=== PATIENT | female | born 1950 | race Hispanic/Latino ===

== ENCOUNTER 2018-03-08 00:56 | Emergency (ER) | payer OTHER ==
[~2018-03-08 00:56] MED LIST: ASPI-891 PO; IBUP-2077 PO; LISI-617 PO; NITR0.4T SL; RANI150T7 PO; ROSU20TA PO; SOTA80TA PO; TIZA2CAP9 PO
[2018-03-08] MEDS ORDERED: ONDANSETRON HCL MDV 20ML 2 MG/ML VIAL ONE (03:17)
[2018-03-08] MEDS ORDERED: SODIUM CHLORIDE 0.9% 1000ML 1,000 ML IV ONE (03:18)
[2018-03-08] MEDS ORDERED: MORPHINE SULFATE 8 MG/ML VIAL ONE (03:21)
[2018-03-08 03:34] LABS: BILIRUBIN,URINE Negative (NEGATIVE); COLOR,URINE Yellow (YELLOW); GLUCOSE, URINE (UA) Negative (NEGATIVE); KETONES,URINE Negative (NEGATIVE); LEUKOCYTE ESTERASE ,URINE Negative (NEGATIVE); NITRATE,URINE Negative (NEGATIVE); OCCULT BLOOD,URINE Moderate (NEGATIVE); PROTEIN,URINE Negative (NEGATIVE); UROBILINOGEN,URINE 0.2 mg/dL (0.2-1.0)
[2018-03-08 03:44] LABS: BASOPHILS % (AUTO) 0.4 % (0.0-5.0); EOSINOPHILS % (AUTO) 2.7 % (0.0-8.0); HEMATOCRIT 38.3 % (36-48); LYMPHOCYTES % (AUTO) 5.3 % (21.0-51.0); MEAN CORPUSCULAR HEMOGLOBIN 28.6 pg (27.0-33.0); MEAN CORPUSCULAR HGB CONC 33.9 g/dL (32.0-36.0); MEAN CORPUSCULAR VOLUME 84.6 fL (79-99); MONOCYTES % (AUTO) 5.6 % (3.0-13.0); PLATELET COUNT (AUTO) 253 K/uL (130-400); RED BLOOD CELL COUNT(AUTO) 4.53 MIL/uL (4.00-5.50); RED CELL DISTRIBUTION WIDTH 13.2 % (11.0-15.5); WHITE BLOOD COUNT (AUTO) 12.2 K/uL (4.8-10.8)
[2018-03-08 03:57] LABS: CREATININE 0.7 mg/dL (0.5-1.5); POTASSIUM 3.9 mmol/L (3.5-5.1)
[2018-03-08 04:02] LABS: ALBUMIN 3.6 g/dL (3.5-5.0); BILIRUBIN,TOTAL 0.5 mg/dL (0.2-1.0); TOTAL PROTEIN, SERUM 7.8 g/dL (6.0-8.3)
[2018-03-08 04:02] LABS: APPEARANCE,URINE CLEAR (CLEAR); BACTERIA,URINE Few /HPF (None Seen); MUCUS,URINE Few LPF (None Seen); RBC,URINE None Seen /HPF (0-1); WBC,URINE 0-1 /HPF (0-1)
[2018-03-08] MEDS ORDERED: IOPAMIDOL-370 75 ML VIAL IV ONE (04:30)
== END 2018-03-08 06:51 | disposition home or self-care (01) ==
LOC: EDH 00:56
DX: K80.80 Other cholelithiasis without obstruction (principal); E78.5 Hyperlipidemia, unspecified; I10 Essential (primary) hypertension; Z88.0 Allergy status to penicillin
CPT/HCPCS: 36415; 74177; 76705; 80053; 81001; 82150; 83690; 85025; 93005; 96374; 96375; 99285; J2270; J7030; Q9967

== ENCOUNTER 2020-10-18 12:50 | Inpatient (IN) | payer OTHER ==
[~2020-10-18] VITALS: Ht 170.2 cm; Wt 87.2 kg
[~2020-10-18 12:50] MED LIST changes: -ROSU20TA PO; +ROSU20TA23 PO
[2020-10-18 13:20] LABS: APPEARANCE,URINE Clear (CLEAR); BILIRUBIN,URINE Negative (NEGATIVE); COLOR,URINE Yellow (YELLOW); GLUCOSE, URINE (UA) Negative (NEGATIVE); KETONES,URINE Negative (NEGATIVE); LEUKOCYTE ESTERASE ,URINE Trace (NEGATIVE); NITRATE,URINE Negative (NEGATIVE); OCCULT BLOOD,URINE Moderate (NEGATIVE); PH,URINE 5.5 (5.0-8.0); PROTEIN,URINE Negative (NEGATIVE); UROBILINOGEN,URINE 0.2 mg/dL (0.2-1.0)
[2020-10-18 13:21] LABS: BASOPHILS % (AUTO) 1.5 % (0.0-5.0); HEMATOCRIT 44.4 % (36-48); LYMPHOCYTES % (AUTO) 27.8 % (21.0-51.0); MEAN CORPUSCULAR HEMOGLOBIN 28.3 pg (27.0-33.0); MEAN CORPUSCULAR HGB CONC 32.2 g/dL (32.0-36.0); MEAN CORPUSCULAR VOLUME 87.9 fL (79-99); MONOCYTES % (AUTO) 8.7 % (3.0-13.0); NEUTROPHILS % (AUTO) 53.8 % (40.0-77.0); PLATELET COUNT (AUTO) 265 K/uL (130-400); RED BLOOD CELL COUNT(AUTO) 5.05 MIL/uL (4.00-5.50); RED CELL DISTRIBUTION WIDTH 12.9 % (11.0-15.5)
[2020-10-18 13:23] LABS: BACTERIA,URINE Rare /HPF (None Seen); RBC,URINE 0-1 /HPF (0-1); SQUAMOUS EPITHELIAL CELL,UR Few /HPF (0-2); WBC,URINE 0-1 /HPF (0-1)
[2020-10-18] MEDS ORDERED: ONDANSETRON HCL 4 MG/2 ML VIAL ONE (13:23)
[2020-10-18] MEDS ORDERED: SODIUM CHLORIDE 0.9% 100 ML IV ONE (13:24)
[2020-10-18] MEDS ORDERED: ACETAMINOPHEN 325 MG TAB ONE (13:28)
[2020-10-18] MEDS ORDERED: MORPHINE SULFATE 4 MG/1ML SYG ONE (13:29)
[2020-10-18] MEDS ORDERED: SODIUM CHLORIDE 0.9% 1000ML 1,000 ML IV ONE (13:29)
[2020-10-18 13:37] LABS: ALBUMIN 3.9 g/dL (3.5-5.0); BILIRUBIN,TOTAL 0.6 mg/dL (0.2-1.0); CREATININE 0.7 mg/dL (0.5-1.5); POTASSIUM 3.5 mmol/L (3.5-5.1)
[2020-10-18] MEDS ORDERED: KETOROLAC TROMETHAMINE 30MG/ML ONE (14:30)
[2020-10-18] MEDS ORDERED: TAMSULOSIN HCL 0.4 MG CAP.ER.24H ONE (15:57)
[2020-10-18] MEDS ORDERED: LEVOFLOXACIN 500 MG TABLET ONE (16:09)
[2020-10-18] MEDS: SODIUM CHLORIDE 0.9% 1000ML 1,000 ML IV SCH (18:15)
[2020-10-18] MEDS ORDERED: ONDANSETRON HCL 4 MG/2 ML VIAL IVP PRN (18:15)
[2020-10-18] MEDS: CEFTRIAXONE SODIUM 1 GM IVP SCH (18:15)
[2020-10-18] MEDS ORDERED: CEFTRIAXONE SODIUM 1 GM ONE (20:15)
[2020-10-18] MEDS ORDERED: FAMOTIDINE 20MG TAB 20 MG TAB ONE (20:15)
[2020-10-18] MEDS ORDERED: METOPROLOL TARTRATE 25 MG TAB ONE (20:16)
[2020-10-18] MEDS: METOPROLOL TARTRATE 25 MG TAB PO SCH (21:00)
[2020-10-18] MEDS: FAMOTIDINE/PF 20 MG/2 ML VIAL IV SCH (21:00)
[2020-10-19] MEDS: SODIUM CHLORIDE 0.9% 1000ML 1,000 ML IV SCH ×3 (04:15→19:49)
[2020-10-19 06:33] LABS: BASOPHILS % (AUTO) 0.8 % (0.0-5.0); EOSINOPHILS % (AUTO) 1.7 % (0.0-8.0); HEMATOCRIT 35.8 % (36-48); LYMPHOCYTES % (AUTO) 17.8 % (21.0-51.0); MEAN CORPUSCULAR HEMOGLOBIN 28.4 pg (27.0-33.0); MEAN CORPUSCULAR HGB CONC 32.4 g/dL (32.0-36.0); MEAN CORPUSCULAR VOLUME 87.7 fL (79-99); MONOCYTES % (AUTO) 8.2 % (3.0-13.0); NEUTROPHILS % (AUTO) 71.2 % (40.0-77.0); PLATELET COUNT (AUTO) 214 K/uL (130-400); RED BLOOD CELL COUNT(AUTO) 4.08 MIL/uL (4.00-5.50); RED CELL DISTRIBUTION WIDTH 12.8 % (11.0-15.5); WHITE BLOOD COUNT (AUTO) 6.6 K/uL (4.8-10.8)
[2020-10-19 06:45] LABS: CREATININE 0.6 mg/dL (0.5-1.5); POTASSIUM 3.8 mmol/L (3.5-5.1)
[2020-10-19 06:55] LABS: ALBUMIN 3.1 g/dL (3.5-5.0); BILIRUBIN,TOTAL 0.5 mg/dL (0.2-1.0); TOTAL PROTEIN, SERUM 6.4 g/dL (6.0-8.3)
[2020-10-19] MEDS: METOPROLOL TARTRATE 25 MG TAB PO SCH ×2 (09:00→19:49)
[2020-10-19] MEDS: FAMOTIDINE/PF 20 MG/2 ML VIAL IV SCH ×2 (09:00→19:49)
[2020-10-19] MEDS: ASPIRIN 81MG TAB.CHEW PO SCH (09:00)
[2020-10-19 10:21] VITALS: BP 148/71
[2020-10-19] MEDS ORDERED: ONDANSETRON HCL 4 MG/2 ML VIAL IVP PRN (13:30)
[2020-10-19] MEDS ORDERED: ACETAMINOPHEN 325 MG TAB PO PRN (13:30)
[2020-10-19] MEDS ORDERED: SODIUM CHLORIDE 0.9% 1000ML 1,000 ML IV SCH (13:30)
[2020-10-19] MEDS: CEFTRIAXONE SODIUM 1 GM IVP SCH (18:19)
[2020-10-19 18:34] VITALS: BP 140/89
[2020-10-19] MEDS ORDERED: ERGO50CA PO (18:46)
[2020-10-19] MEDS ORDERED: BACL5TAB PO (18:47)
[2020-10-19] MEDS ORDERED: SOTA80TA PO (18:47)
[2020-10-19 19:47] VITALS: BP 134/69
[2020-10-19] MEDS ORDERED: FAMOTIDINE 20MG TAB 20 MG TAB PO SCH (21:00)
[2020-10-19] MEDS ORDERED: METOPROLOL TARTRATE 25 MG TAB PO SCH (21:00)
[2020-10-20] VITALS (7 sets, daily range): BP systolic 128–153; BP diastolic 70–88
[2020-10-20 05:47] LABS: HEMATOCRIT 38.3 % (36-48); MEAN CORPUSCULAR HEMOGLOBIN 28.2 pg (27.0-33.0); MEAN CORPUSCULAR HGB CONC 31.6 g/dL (32.0-36.0); MEAN CORPUSCULAR VOLUME 89.3 fL (79-99); RED BLOOD CELL COUNT(AUTO) 4.29 MIL/uL (4.00-5.50); RED CELL DISTRIBUTION WIDTH 13.2 % (11.0-15.5); WHITE BLOOD COUNT (AUTO) 5.7 K/uL (4.8-10.8)
[2020-10-20 06:34] LABS: ALBUMIN 3.2 g/dL (3.5-5.0); BILIRUBIN,TOTAL 0.4 mg/dL (0.2-1.0); CREATININE 0.7 mg/dL (0.5-1.5); POTASSIUM 3.6 mmol/L (3.5-5.1); TOTAL PROTEIN, SERUM 6.7 g/dL (6.0-8.3)
[2020-10-20] MEDS: METOPROLOL TARTRATE 25 MG TAB PO SCH (08:55)
[2020-10-20] MEDS: FAMOTIDINE/PF 20 MG/2 ML VIAL IV SCH ×2 (08:55→22:55)
[2020-10-20] MEDS: ASPIRIN 81MG TAB.CHEW PO SCH (08:56)
[2020-10-20] MEDS ORDERED: CEFTRIAXONE SODIUM 1 GM IVP SCH (09:00)
[2020-10-20] MEDS ORDERED: ASPIRIN 81 MG EC TAB PO SCH (09:00)
[2020-10-20] MEDS: ACETAMINOPHEN 325 MG TAB PO PRN ×2 (09:01→22:59)
[2020-10-20] MEDS: SODIUM CHLORIDE 0.9% 1000ML 1,000 ML IV SCH ×2 (10:15→20:15)
[2020-10-20] MEDS ORDERED: MAGNESIUM CITRATE 296 ML SOLUTION PO PRN (15:15)
[2020-10-20] MEDS: ZOSYN 3.375GM+NS 50ML 50 ML IV SCH ×2 (16:27→22:55)
[2020-10-20] MEDS ORDERED: NON-FORMULARY MEDICATION 1 EACH (Baclofen 5 MG) PO PRN (16:45)
[2020-10-20] MEDS ORDERED: ERGOCALCIFEROL PO SCH (16:45)
[2020-10-20] MEDS ORDERED: BACLOFEN 10 MG TABLET PO PRN (18:00)
[2020-10-20] MEDS ORDERED: MAGNESIUM CITRATE 296 ML SOLUTION PO SCH (18:50)
[2020-10-20] MEDS: ATORVASTATIN CALCIUM 40 MG TABLET PO SCH (22:56)
[2020-10-20] MEDS: SOTALOL HCL 80 MG TABLET PO SCH (22:56)
[2020-10-21 04:02] VITALS: BP 129/76
[2020-10-21] MEDS: SODIUM CHLORIDE 0.9% 1000ML 1,000 ML IV SCH ×3 (06:15→21:41)
[2020-10-21 06:30] LABS: HEMATOCRIT 36.9 % (36-48); MEAN CORPUSCULAR HEMOGLOBIN 27.8 pg (27.0-33.0); MEAN CORPUSCULAR HGB CONC 31.4 g/dL (32.0-36.0); MEAN CORPUSCULAR VOLUME 88.5 fL (79-99); RED BLOOD CELL COUNT(AUTO) 4.17 MIL/uL (4.00-5.50); RED CELL DISTRIBUTION WIDTH 13.2 % (11.0-15.5); WHITE BLOOD COUNT (AUTO) 5.9 K/uL (4.8-10.8)
[2020-10-21] MEDS: ZOSYN 3.375GM+NS 50ML 50 ML IV SCH ×3 (06:46→21:41)
[2020-10-21 06:48] LABS: CREATININE 0.6 mg/dL (0.5-1.5); POTASSIUM 3.5 mmol/L (3.5-5.1)
[2020-10-21 08:19] VITALS: BP 139/74
[2020-10-21] MEDS ORDERED: NON-FORMULARY MEDICATION 1 EACH (Rosuvastatin Calcium (Crestor) 20 MG) PO SCH (09:00)
[2020-10-21] MEDS: ASPIRIN 325MG EC TAB 325 MG TABLET.DR PO SCH (09:29)
[2020-10-21] MEDS: FAMOTIDINE/PF 20 MG/2 ML VIAL IV SCH ×2 (09:29→21:41)
[2020-10-21] MEDS: LISINOPRIL 5 MG TABLET PO SCH (09:29)
[2020-10-21] MEDS: SOTALOL HCL 80 MG TABLET PO SCH ×2 (09:29→21:41)
[2020-10-21 12:51] VITALS: BP 129/64
[2020-10-21 16:46] VITALS: BP 124/68
[2020-10-21 20:40] VITALS: BP 141/58
[2020-10-21] MEDS: ATORVASTATIN CALCIUM 40 MG TABLET PO SCH (21:41)
[2020-10-21 23:25] VITALS: BP 122/63
[2020-10-22 03:50] VITALS: BP 136/67
[2020-10-22] MEDS: ZOSYN 3.375GM+NS 50ML 50 ML IV SCH ×2 (06:15→15:12)
[2020-10-22] MEDS: SODIUM CHLORIDE 0.9% 1000ML 1,000 ML IV SCH (06:17)
[2020-10-22 06:36] LABS: HEMATOCRIT 36.1 % (36-48); MEAN CORPUSCULAR HEMOGLOBIN 28.1 pg (27.0-33.0); MEAN CORPUSCULAR HGB CONC 31.3 g/dL (32.0-36.0); MEAN CORPUSCULAR VOLUME 89.8 fL (79-99); RED BLOOD CELL COUNT(AUTO) 4.02 MIL/uL (4.00-5.50); WHITE BLOOD COUNT (AUTO) 6.4 K/uL (4.8-10.8)
[2020-10-22 07:14] LABS: CREATININE 0.8 mg/dL (0.5-1.5); POTASSIUM 3.5 mmol/L (3.5-5.1)
[2020-10-22 08:06] VITALS: BP 143/82
[2020-10-22] MEDS: FAMOTIDINE/PF 20 MG/2 ML VIAL IV SCH (10:15)
[2020-10-22] MEDS: SOTALOL HCL 80 MG TABLET PO SCH (10:15)
[2020-10-22] MEDS: LISINOPRIL 5 MG TABLET PO SCH (10:15)
[2020-10-22] MEDS: ASPIRIN 325MG EC TAB 325 MG TABLET.DR PO SCH (10:16)
[2020-10-22 11:35] VITALS: BP 140/63
[2020-10-22 16:07] VITALS: BP 102/60
[2020-10-22] MEDS ORDERED: AMOX-429 PO (18:05)
[2020-10-27] MEDS ORDERED: ERGOCALCIFEROL (VITAMIN D2) 50,000 UNIT CAPSULE PO SCH (09:00)
== END 2020-10-22 19:21 | disposition home or self-care (01) | DRG 690 ==
LOC: EDH 12:50 → EDHIP 17:49 → OBSVTOIN 17:49 → 3AH 10-19 09:47
PROVIDERS: ADMIT Internal Medicine; ATTEND Internal Medicine
DX: N39.0 Urinary tract infection, site not specified (principal); I48.19 Other persistent atrial fibrillation; K59.09 Other constipation; E78.5 Hyperlipidemia, unspecified; E66.9 Obesity, unspecified; I10 Essential (primary) hypertension; K57.30 Diverticulosis of large intestine without perforation or abscess without bleeding; R31.9 Hematuria, unspecified; M62.838 Other muscle spasm; K57.90 Diverticulosis of intestine, part unspecified, without perforation or abscess without bleeding; Z68.30 Body mass index [BMI] 30.0-30.9, adult; Z79.899 Other long term (current) drug therapy; Z87.442 Personal history of urinary calculi
CPT/HCPCS: 36415; 74176; 76856; 80048; 80053; 81001; 83605; 84484; 85025; 85027; 87040; 87088; 93005; G0378; J0696; J1885; J2270; J2405; J2543; J3490; J7030

== ENCOUNTER → 2020-12-14 | Outpatient (CLI) | payer OTHER ==
[~2020-12-14] VITALS: Ht 167.6 cm; Wt 84.8 kg
[~2020-12-14] MED LIST changes: +AMOX-429 PO; +BACL5TAB PO; +ERGO50CA PO; -IBUP-2077 PO; -LISI-617 PO; +LISI-809 PO; -RANI150T7 PO; +REGADENOSON 0.4 MG/5 ML PF SYG IVP SCH; -TIZA2CAP9 PO
== END | disposition home or self-care (01) ==
LOC: SHCH 08:01
PROVIDERS: ATTEND Internal Medicine Cardiovascular Disease
DX: R07.9 Chest pain, unspecified (principal); I48.19 Other persistent atrial fibrillation; R06.00 Dyspnea, unspecified
CPT/HCPCS: 78452; 93017; 96374; A9500 ×2; J2785

== ENCOUNTER → 2021-01-18 | Outpatient (CLI) | payer OTHER ==
[~2021-01-18] MED LIST changes: -REGADENOSON 0.4 MG/5 ML PF SYG IVP SCH
== END | disposition home or self-care (01) ==
LOC: SHCH 15:31
PROVIDERS: ATTEND Internal Medicine Cardiovascular Disease
DX: I10 Essential (primary) hypertension (principal); R07.9 Chest pain, unspecified; I48.11 Longstanding persistent atrial fibrillation
CPT/HCPCS: 93306; 93356

== ENCOUNTER 2021-02-28 15:34 | Observation (INO) | payer OTHER ==
[~2021-02-28] VITALS: Ht 167.6 cm; Wt 86.3 kg
[2021-02-28 16:04] LABS: BASOPHILS % (AUTO) 0.9 % (0.0-5.0); EOSINOPHILS % (AUTO) 6.6 % (0.0-8.0); HEMATOCRIT 38.3 % (36-48); LYMPHOCYTES % (AUTO) 26.5 % (21.0-51.0); MEAN CORPUSCULAR HEMOGLOBIN 28.6 pg (27.0-33.0); MEAN CORPUSCULAR HGB CONC 32.1 g/dL (32.0-36.0); MEAN CORPUSCULAR VOLUME 89.1 fL (79-99); MONOCYTES % (AUTO) 8.3 % (3.0-13.0); NEUTROPHILS % (AUTO) 57.5 % (40.0-77.0); PLATELET COUNT (AUTO) 210 K/uL (130-400); RED CELL DISTRIBUTION WIDTH 13.4 % (11.0-15.5); WHITE BLOOD COUNT (AUTO) 6.5 K/uL (4.8-10.8)
[2021-02-28 16:16] LABS: CREATININE 0.7 mg/dL (0.5-1.5); INR 1.03 (0.85-1.15); POTASSIUM 3.4 mmol/L (3.5-5.1); PROTHROMBIN TIME 11.2 SEC (9.6-11.6)
[2021-02-28 16:17] LABS: PARTIAL THROMBOPLASTIN TIME 23.7 SEC (26.3-35.5)
[2021-02-28 16:25] LABS: ALBUMIN 3.5 g/dL (3.5-5.0); BILIRUBIN,TOTAL 0.8 mg/dL (0.2-1.0); TOTAL PROTEIN, SERUM 7.3 g/dL (6.0-8.3)
[2021-02-28 16:46] LABS: B-TYPE NATRIURETIC PEPTIDE 494 pg/mL (0-100)
[2021-02-28 17:06] LABS: APPEARANCE,URINE Clear (CLEAR); BILIRUBIN,URINE Negative (NEGATIVE); COLOR,URINE Yellow (YELLOW); GLUCOSE, URINE (UA) Negative (NEGATIVE); KETONES,URINE Negative (NEGATIVE); LEUKOCYTE ESTERASE ,URINE Trace (NEGATIVE); NITRATE,URINE Negative (NEGATIVE); OCCULT BLOOD,URINE Trace (NEGATIVE); PH,URINE 6.5 (5.0-8.0); PROTEIN,URINE Negative (NEGATIVE)
[2021-02-28 17:28] LABS: BACTERIA,URINE Few /HPF (None Seen); MUCUS,URINE Few LPF (None Seen); SQUAMOUS EPITHELIAL CELL,UR Moderate /HPF (0-2)
[2021-02-28] MEDS ORDERED: SODIUM CHLORIDE 0.9% 1000ML 1,000 ML IV SCH (23:00)
[2021-02-28] MEDS ORDERED: HYDRALAZINE HCL 20 MG/ML VIAL IV PRN (23:00)
[2021-02-28] MEDS ORDERED: ACETAMINOPHEN 325 MG TAB PO PRN (23:00)
[2021-02-28] MEDS ORDERED: NITROGLYCERIN 1GM/1 INCH PACKET TD SCH (23:00)
[2021-02-28] MEDS ORDERED: ONDANSETRON HCL 4 MG/2 ML VIAL IV PRN (23:00)
[2021-02-28 23:57] LABS: CREATINE KINASE, TOTAL 84 U/L (21-232); MYOGLOBIN 39 ng/mL (10-92); TROPONIN I < 0.04 ng/mL (0.00-0.06)
[2021-03-01] VITALS (7 sets, daily range): BP systolic 129–168; BP diastolic 64–87
[2021-03-01] MEDS ORDERED: ATORVASTATIN CALCIUM 40 MG TABLET ONE (00:04)
[2021-03-01] MEDS ORDERED: NITROGLYCERIN 1GM/1 INCH PACKET TD ONE (00:05)
[2021-03-01] MEDS ORDERED: SODIUM CHLORIDE 0.9% 500ML 500 ML IV ONE (00:07)
[2021-03-01] MEDS ORDERED: ADV250 IH (02:22)
[2021-03-01] MEDS ORDERED: APIX5TAB PO (02:22)
[2021-03-01] MEDS ORDERED: METO-409 PO (02:22)
[2021-03-01] MEDS ORDERED: FAMO40TA7 PO (02:22)
[2021-03-01 05:04] LABS: BASOPHILS % (AUTO) 1.1 % (0.0-5.0); HEMATOCRIT 35.9 % (36-48); LYMPHOCYTES % (AUTO) 26.4 % (21.0-51.0); MEAN CORPUSCULAR HEMOGLOBIN 28.4 pg (27.0-33.0); MEAN CORPUSCULAR HGB CONC 31.5 g/dL (32.0-36.0); MEAN CORPUSCULAR VOLUME 90.2 fL (79-99); MONOCYTES % (AUTO) 8.8 % (3.0-13.0); NEUTROPHILS % (AUTO) 56.4 % (40.0-77.0); PLATELET COUNT (AUTO) 191 K/uL (130-400); RED BLOOD CELL COUNT(AUTO) 3.98 MIL/uL (4.00-5.50); RED CELL DISTRIBUTION WIDTH 13.2 % (11.0-15.5)
[2021-03-01 05:28] LABS: ALBUMIN 3.1 g/dL (3.5-5.0); CREATININE 0.6 mg/dL (0.5-1.5); MAGNESIUM 1.9 mg/dL (1.80-2.40); PHOSPHORUS 3.9 mg/dL (2.5-4.9); POTASSIUM 3.3 mmol/L (3.5-5.1); THYROID STIMULATING HORMONE 1.3 uIU/mL (0.36-3.74); TOTAL PROTEIN, SERUM 6.7 g/dL (6.0-8.3)
[2021-03-01 07:21] LABS: CREATINE KINASE, TOTAL 54 U/L (21-232); MYOGLOBIN 44 ng/mL (10-92); TROPONIN I < 0.04 ng/mL (0.00-0.06)
[2021-03-01] MEDS ORDERED: ASPIRIN 325 MG TABLET PO SCH (09:00)
[2021-03-01] MEDS ORDERED: SOTALOL HCL 80 MG TABLET PO SCH (09:00)
[2021-03-01] MEDS ORDERED: ENOXAPARIN SODIUM 40 MG/0.4 ML SYRINGE SQ SCH (09:00)
[2021-03-01] MEDS: NITROGLYCERIN 1GM/1 INCH PACKET TD SCH ×3 (09:44→19:42)
[2021-03-01] MEDS: FAMOTIDINE 20MG TAB 20 MG TAB PO SCH ×2 (09:44→20:50)
[2021-03-01] MEDS: SULFAMETHOX-TMP DS 800/160 TAB PO SCH ×2 (09:44→20:50)
[2021-03-01] MEDS: METOPROLOL SUCCINATE 50 MG TAB.SR.24H PO SCH (09:45)
[2021-03-01] MEDS: APIXABAN 5 MG TABLET PO SCH ×2 (09:45→20:50)
[2021-03-01 14:08] LABS: CREATINE KINASE, TOTAL 63 U/L (21-232); MYOGLOBIN 46 ng/mL (10-92); TROPONIN I < 0.04 ng/mL (0.00-0.06)
[2021-03-01] MEDS ORDERED: ATORVASTATIN CALCIUM 40 MG TABLET PO SCH (21:00)
[2021-03-02] MEDS: NITROGLYCERIN 1GM/1 INCH PACKET TD SCH ×3 (01:25→14:20)
[2021-03-02 03:00] VITALS: BP 159/69
[2021-03-02 03:59] LABS: ALBUMIN 3.1 g/dL (3.5-5.0); BILIRUBIN,TOTAL 0.8 mg/dL (0.2-1.0); CREATININE 0.8 mg/dL (0.5-1.5); MAGNESIUM 1.9 mg/dL (1.80-2.40); POTASSIUM 3.6 mmol/L (3.5-5.1); TOTAL PROTEIN, SERUM 6.6 g/dL (6.0-8.3)
[2021-03-02 08:00] VITALS: BP 150/96
[2021-03-02] MEDS: FAMOTIDINE 20MG TAB 20 MG TAB PO SCH (08:05)
[2021-03-02] MEDS: APIXABAN 5 MG TABLET PO SCH (08:05)
[2021-03-02] MEDS: SULFAMETHOX-TMP DS 800/160 TAB PO SCH (08:05)
[2021-03-02] MEDS: METOPROLOL SUCCINATE 50 MG TAB.SR.24H PO SCH (08:05)
[2021-03-02 11:49] VITALS: BP 149/88
[2021-03-02] MEDS ORDERED: SULF1TAB42 PO (13:49)
== END 2021-03-02 15:00 | disposition home or self-care (01) ==
LOC: EDH 15:34 → EDHIP 22:46 → 4DH 03-01 00:56
PROVIDERS: ADMIT Internal Medicine Critical Care Medicine; ATTEND Internal Medicine Critical Care Medicine
DX: R07.89 Other chest pain (principal); I48.20 Chronic atrial fibrillation, unspecified; I10 Essential (primary) hypertension; K59.09 Other constipation; E66.9 Obesity, unspecified; E78.5 Hyperlipidemia, unspecified; M62.838 Other muscle spasm; R55 Syncope and collapse; N39.0 Urinary tract infection, site not specified; Z90.49 Acquired absence of other specified parts of digestive tract; Z79.01 Long term (current) use of anticoagulants; Z79.82 Long term (current) use of aspirin; Z79.899 Other long term (current) drug therapy; Z88.0 Allergy status to penicillin; Z68.30 Body mass index [BMI] 30.0-30.9, adult
CPT/HCPCS: 36415 ×3; 71045; 80053 ×3; 80061; 81001; 82550 ×4; 82948 ×3; 83735 ×2; 83874 ×3; 83880; 84100; 84443; 84484 ×4; 85025 ×2; 85610; 85730; 93005 ×5; 93306; 93880; 99285; G0378 ×39; J7040

== ENCOUNTER → 2023-02-06 | Outpatient (CLI) | payer OTHER ==
[~2023-02-06] MED LIST changes: +ADV250 IH; -AMOX-429 PO; +APIX5TAB PO; -ASPI-891 PO; +FAMO40TA7 PO; -LISI-809 PO; +LISI5TAB21 PO; +METO-409 PO; -SOTA80TA PO; +SULF1TAB42 PO
[2023-02-06 12:13] LABS: BASOPHILS % (AUTO) 1.5 % (0.0-5.0); EOSINOPHILS % (AUTO) 5.4 % (0.0-8.0); HEMATOCRIT 43.1 % (36-48); LYMPHOCYTES % (AUTO) 26.5 % (21.0-51.0); MEAN CORPUSCULAR HEMOGLOBIN 28.4 pg (27.0-33.0); MEAN CORPUSCULAR HGB CONC 31.3 g/dL (32.0-36.0); MEAN CORPUSCULAR VOLUME 90.5 fL (79-99); MONOCYTES % (AUTO) 9.5 % (3.0-13.0); NEUTROPHILS % (AUTO) 56.6 % (40.0-77.0); PLATELET COUNT (AUTO) 244 K/uL (130-400); RED BLOOD CELL COUNT(AUTO) 4.76 MIL/uL (4.00-5.50); RED CELL DISTRIBUTION WIDTH 13.1 % (11.0-15.5); WHITE BLOOD COUNT (AUTO) 6.6 K/uL (4.8-10.8)
[2023-02-06 12:37] LABS: ALBUMIN 3.7 g/dL (3.5-5.0); CREATININE 0.7 mg/dL (0.5-1.5); POTASSIUM 4.2 mmol/L (3.5-5.1); TOTAL PROTEIN, SERUM 7.4 g/dL (6.0-8.3)
== END | disposition home or self-care (01) ==
LOC: LAB 10:54
PROVIDERS: ATTEND Internal Medicine Cardiovascular Disease
DX: E78.5 Hyperlipidemia, unspecified (principal); I48.91 Unspecified atrial fibrillation; D68.59 Other primary thrombophilia
CPT/HCPCS: 36415; 80053; 80061; 85025

== ENCOUNTER → 2023-09-14 | Outpatient (CLI) | payer OTHER ==
[2023-09-14 12:11] LABS: BASOPHILS # (AUTO) 0.09 K/uL (0.00-0.20); BASOPHILS % (AUTO) 1.3 % (0.0-5.0); EOSINOPHILS # (AUTO) 0.26 K/uL (0.00-0.70); EOSINOPHILS % (AUTO) 3.9 % (0.0-8.0); HEMATOCRIT 44.8 % (36-48); IMMATURE GRANULOCYTE ABSOLUTE 0.02 K/uL (0-1); LYMPHOCYTES # (AUTO) 1.5 K/uL (1.0-4.8); LYMPHOCYTES % (AUTO) 22.9 % (21.0-51.0); MEAN CORPUSCULAR HEMOGLOBIN 29.4 pg (27.0-33.0); MEAN CORPUSCULAR HGB CONC 31.5 g/dL (32.0-36.0); MEAN CORPUSCULAR VOLUME 93.3 fL (79-99); MONOCYTES # (AUTO) 0.6 K/uL (0.1-1.0); MONOCYTES % (AUTO) 8.3 % (3.0-13.0); NEUTROPHILS # (AUTO) 4.3 K/uL (1.8-7.7); NEUTROPHILS % (AUTO) 63.3 % (40.0-77.0); PLATELET COUNT (AUTO) 245 K/uL (130-400); RED CELL DISTRIBUTION WIDTH 12.8 % (11.0-15.5); WHITE BLOOD COUNT (AUTO) 6.7 K/uL (4.8-10.8)
[2023-09-14 12:44] LABS: ALBUMIN 3.6 g/dL (3.5-5.0); BILIRUBIN,TOTAL 0.6 mg/dL (0.2-1.0); CREATININE 0.8 mg/dL (0.5-1.5); POTASSIUM 3.8 mmol/L (3.5-5.1); TOTAL PROTEIN, SERUM 7.4 g/dL (6.0-8.3)
== END | disposition home or self-care (01) ==
LOC: LAB 10:14
PROVIDERS: ATTEND Internal Medicine Cardiovascular Disease
DX: E78.5 Hyperlipidemia, unspecified (principal); D68.59 Other primary thrombophilia
CPT/HCPCS: 36415; 80053; 80061; 85025

== ENCOUNTER → 2024-03-28 | Outpatient (CLI) | payer OTHER ==
[2024-03-28 12:26] LABS: BASOPHILS # (AUTO) 0.09 K/uL (0.00-0.20); BASOPHILS % (AUTO) 1.7 % (0.0-5.0); EOSINOPHILS # (AUTO) 0.39 K/uL (0.00-0.70); EOSINOPHILS % (AUTO) 7.3 % (0.0-8.0); HEMATOCRIT 43.7 % (36-48); IMMATURE GRANULOCYTE ABSOLUTE 0.01 K/uL (0-1); LYMPHOCYTES # (AUTO) 1.4 K/uL (1.0-4.8); LYMPHOCYTES % (AUTO) 26.6 % (21.0-51.0); MEAN CORPUSCULAR HEMOGLOBIN 28.7 pg (27.0-33.0); MEAN CORPUSCULAR HGB CONC 31.4 g/dL (32.0-36.0); MEAN CORPUSCULAR VOLUME 91.6 fL (79-99); MONOCYTES # (AUTO) 0.6 K/uL (0.1-1.0); MONOCYTES % (AUTO) 10.3 % (3.0-13.0); NEUTROPHILS # (AUTO) 2.9 K/uL (1.8-7.7); NEUTROPHILS % (AUTO) 53.9 % (40.0-77.0); PLATELET COUNT (AUTO) 232 K/uL (130-400); RED BLOOD CELL COUNT(AUTO) 4.77 MIL/uL (4.00-5.50); RED CELL DISTRIBUTION WIDTH 13.1 % (11.0-15.5); WHITE BLOOD COUNT (AUTO) 5.3 K/uL (4.8-10.8)
[2024-03-28 12:37] LABS: ALBUMIN 3.7 g/dL (3.5-5.0); BILIRUBIN,TOTAL 0.6 mg/dL (0.2-1.0); CREATININE 0.6 mg/dL (0.5-1.0); POTASSIUM 3.9 mmol/L (3.5-5.1); TOTAL PROTEIN, SERUM 7.4 g/dL (6.0-8.3)
== END | disposition home or self-care (01) ==
LOC: LAB 08:31
PROVIDERS: ATTEND Internal Medicine Cardiovascular Disease
DX: D68.59 Other primary thrombophilia (principal); E78.5 Hyperlipidemia, unspecified
CPT/HCPCS: 36415; 80053; 80061; 85025

== ENCOUNTER → 2024-06-02 | Outpatient (CLI) | payer OTHER | END | disposition home or self-care (01) | LOC: RAH 14:52 | PROVIDERS: ATTEND Family Medicine | DX: M85.88 Other specified disorders of bone density and structure, other site (principal); M81.0 Age-related osteoporosis without current pathological fracture | CPT/HCPCS: 77080 ==

== ENCOUNTER 2024-11-07 19:24 | Emergency (ER) | payer OTHER ==
[~2024-11-07] VITALS: Ht 167.6 cm; Wt 74.8 kg
[2024-11-07] MEDS: BENZONATATE 100 MG CAPSULE PO STA (19:52)
--- NOTE | 2024-11-07 20:10 | ERN ---
ED Note History of Present Illness Stated Complaint: FEVER,COUGH,MULTIPLE COMPLAINTS Chief Complaint: Cough Time Seen by MD: 19:25 Time Seen by Midlevel: 19:30 Dictation: 74-year-old female with a history of hypertension and cholesterol in AFib coming in with complaints of cough since yesterday and today began with chest pain. Patient states he has not had any sick contacts, denies any nausea or vomiting but states she he has felt hot and chills throughout the day today. Allergies: Coded Allergies: Penicillins (Unverified Allergy, Severe, HIVES, 11/23/13) Home Meds Active Scripts Azithromycin (Azithromycin) 250 Mg Tablet, 1 TAB PO AD for 5 Days, #6 TAB 0 Refills 2 the first day followed by 1 for days 2-5 Prov:JOSE KISER DO 11/07/24 Promethazine HCl/Codeine (Promethazine-Codeine Syrup) 6.25 Mg-10 Mg/5 Ml Syrup, 5 ML PO Q4HPRN PRN for cough, #120 ML 0 Refills Prov:JOSE KISER DO 11/07/24 Sulfamethoxazole/Trimethoprim (Bactrim Ds Tablet) 1 Each Tablet, 1 TAB PO BID for urinary tract infection for 5 Days, 10 0 Refills Prov:TALISHA WYATT APRN 03/02/21 Lisinopril (Lisinopril) 5 Mg Tablet, 5 MG PO DAILY, #30 TAB Prov:DILLON DOTSON MD 11/12/15 Reported Medications Fluticasone/Salmeterol (ADVAIR 250-50 DISKUS) 14 Inh/Disk Inh, 1 INH IH BID, INHALER 03/01/21 Famotidine (Famotidine) 40 Mg Tablet, 40 MG PO DAILY, TAB 03/01/21 Apixaban (Eliquis) 5 Mg Tablet, 5 MG PO DAILY, TAB 03/01/21 Metoprolol Succinate (Metoprolol Succinate) 100 Mg Tab.er.24h, 100 MG PO DAILY, TAB 03/01/21 Baclofen (Baclofen) 5 Mg Tablet, 5 MG PO Q8HR PRN for MUSCLE, TAB 10/19/20 Ergocalciferol (Vitamin D2) (Vitamin D2) 50 Mcg Capsule, 50 UNITS PO WEEKLY, CAP 10/19/20 Nitroglycerin (Nitrostat) 0.4 Mg Tab.subl, 0.4 MG SL DAILY PRN for CHEST PAIN, TAB.SL 08/20/16 Rosuvastatin Calcium (Crestor) 20 Mg Tablet, 20 MG PO AM, TAB 11/11/15 Past Medical History Past Medical History: High Cholesterol, Hypertension Surgical History: Cholecystectomy Review of System Dictation Constitutional: Negative for fever,chills, and weight loss Eyes: Negative for injury, pain,redness, and discharge ENT: Negative for injury,pain or swelling Cardiovascular: Positive for chest pain, no palpitations, and no edema Respiratory: Positive for shortness of breath and cough Abdomen/GI: Negative for abdominal pain, nausea, vomiting, diarrhea, and constipation Back: Negative for injury and pain : Negative for injury, bleeding and discharge MS/Extremity: Negative for injury and deformity Skin: Negative for rash, and discoloration Neuro: Negative for headache, weakness, numbness, tingling, and seizure Psych: Negative for suicide ideation, homicidal ideation, and hallucinations Review of Systems: was completed Initial Vital Sign VS Vital Signs Date Time Temp Pulse Resp B/P (MAP) Pulse Ox O2 Delivery O2 Flow Rate FiO2 11/07/24 19:33 100.8 111 20 115/79 98 Room Air 11/07/24 19:58 0 21 Physical Exam Dictation General: awake, alert, NAD Head/Face: Normocephalic, atraumatic Eyes: PERRL, EOMI, vision at baseline ENT: oral cavity clear, TMs clear, no signs of infection Neck: Trachea midline, supple, no nuchal rigidity Cardiovascular: RRR, normal S1/S2, No MRGs, no JVD Respiratory: CTAB, no respiratory distress, No rales or wheezes Abdomen: Soft, non-tender, non-distended, normal bowel sounds, no guarding or rebound. Skin: Warm, dry, normal turgor, no rash MS/Extremity: Pulses equal, no cyanosis, neurovascular intact, FROM Neuro: COAx4, GCS 15, strength 5/5, CN 2-12 intact, normal cerebellar exam, normal gait, Psych: Normal behavior, mood, and affect normal Results (Laboratory/Radiology) Laboratory/Radiology Laboratory Tests Test 11/07/24 19:41 11/07/24 20:10 Influenza Type A Antigen Negative For Type A Influenza Type B Antigen Negative For Type B SARS-CoV-2, RNA, NAAT NEGATIVE SARS CoV-2 Group A Streptococcus Rapid negative (NEGATIVE) White Blood Count 10.4 K/uL (4.8-10.8) Red Blood Count 4.53 MIL/uL (4.00-5.50) Hemoglobin 13.5 g/dL (12.0-16.0) Hematocrit 41.5 % (36-48) Mean Corpuscular Volume 91.6 fL (79-99) Mean Corpuscular Hemoglobin 29.8 pg (27.0-33.0) Mean Corpuscular Hemoglobin Concent 32.5 g/dL (32.0-36.0) Red Cell Distribution Width 12.8 % (11.0-15.5) Platelet Count 193 K/uL (130-400) Mean Platelet Volume 10.6 fL (7.5-10.5) H Immature Granulocyte % (Auto) 0.3 % (0-1) Neutrophils (%) (Auto) 76.3 % (40.0-77.0) Lymphocytes (%) (Auto) 12.0 % (21.0-51.0) L Monocytes (%) (Auto) 8.0 % (3.0-13.0) Eosinophils (%) (Auto) 2.7 % (0.0-8.0) Basophils (%) (Auto) 0.7 % (0.0-5.0) Neutrophils # (Auto) 8.0 K/uL (1.8-7.7) H Lymphocytes # (Auto) 1.3 K/uL (1.0-4.8) Monocytes # (Auto) 0.8 K/uL (0.1-1.0) Eosinophils # (Auto) 0.28 K/uL (0.00-0.70) Basophils # (Auto) 0.07 K/uL (0.00-0.20) Absolute Immature Granulocyte (auto 0.03 K/uL (0-1) Nucleated Red Blood Cells 0.0 % (0.0-0.19) Sodium Level 137 mmol/L (136-145) Potassium Level 3.8 mmol/L (3.5-5.1) Chloride Level 100 mmol/L (101-111) L Carbon Dioxide Level 30 mmol/L (21-32) Blood Urea Nitrogen 15 mg/dL (7-18) Creatinine 0.6 mg/dL (0.5-1.0) Glomerular Filtration Rate Calc 93 mL/min (>90) Random Glucose 125 mg/dL (70-105) H Total Calcium 9.4 mg/dL (8.5-10.1) Troponin I High Sensitivity 7 ng/L (4-50) Labs Reviewed?: Yes EKG Comment: EKGs shows atrial fibrillation, at a rate of 135. No STEMI interpreted by ER MD X-RAY Comment: [facility] [address] [place] [address] IMAGING REPORT Signed PATIENT: CHANELL NAVARRO MR#: [id number] : 1950 SEX: F AGE: 74 LOCATION: [facility] ORDER 36 STATUS: REG ER REPORT#: [id number] SERVICE 33 REASON: cough ORDERING PHYSICIAN: MELE CASTILLO NP PROCEDURE: CXR1VW - CHEST 1VW CHEST 1VW CLINICAL HISTORY: cough COMPARISON: 02/28/2021 TECHNIQUE: Single view of the chest was obtained. FINDINGS: Lungs are clear. The cardiac size and mediastinum are unremarkable. The bony structures are within normal limits. IMPRESSION: No acute cardiopulmonary process identified. DICTATED BY: SUSAN MOTT DO DATE: 11/07/242101 ELECTRONICALLY SIGNED BY: SUSAN MOTT DO DATE: 11/07/242104 ED Course ED Course Orders Procedure Category Date Status Time Cbc With Differential LAB 11/07/24 Complete 19:34 Basic Metabolic Panel LAB 11/07/24 Complete 19:34 12 Lead Ekg Tracing- EKG 11/07/24 Logged Technical 19:34 Troponin I High LAB 11/07/24 Complete Sensitivity 19:34 Chest 1vw RAD 11/07/24 Resulted 19:34 Influenza Type A & B, LAB 11/07/24 Complete Rapid 19:34 Covid Rna Naat LAB 11/07/24 Complete 19:34 Benzonatate 100 Mg PHA 11/07/24 Complete Capsule (Tessalon 100 19:34 Rapid (Group A Strep) LAB 11/07/24 Complete 19:39 Acetaminophen 325 Tab PHA 11/07/24 Complete (Tylenol 325mg Tab 20:10 0.9%Nacl 1000ml (Ns PHA 11/07/24 Complete 1000ml) 20:11 Metoprolol Tartrate PHA 11/07/24 Complete (Lopressor) 20:11 Current Medications Medications (Trade) Dose Ordered Sig/Estuardo Route PRN Reason Start Time Stop Time Status Last Admin Dose Admin Acetaminophen (TYLenol 325MG TAB) 650 mg ONCE STAT PO 11/07/24 20:10 11/07/24 20:11 DC 11/07/24 20:18 Benzonatate (Tessalon 100mg Caps) 200 mg ONCE STAT PO 11/07/24 19:34 11/07/24 19:37 DC 11/07/24 19:52 Metoprolol Tartrate (loprESSOR) 5 mg ONCE STAT IV 11/07/24 20:11 11/07/24 20:13 DC 11/07/24 20:18 Sodium Chloride 1,000 ml @ 500 mls/hr Q2H STAT IV 11/07/24 20:11 11/07/24 21:38 DC 11/07/24 20:18 Vital Signs Date Time Temp Pulse Resp B/P (MAP) Pulse Ox O2 Delivery O2 Flow Rate FiO2 11/07/24 21:27 98.4 90 20 151/74 96 Room Air* 0 21 11/07/24 20:45 98 18 150/90 98 Room Air* 0 21 11/07/24 20:18 130 152/73 11/07/24 19:58 98.2 114 20 127/72 94 Room Air* 0 21 11/07/24 19:33 100.8 111 20 115/79 98 Room Air Medical Decision Making MDM MDM: 74-year-old female with a history of hypertension and cholesterol in AFib coming in with complaints of productive cough since yesterday and today began with chest pain. Patient states he has not had any sick contacts, denies any nausea or vomiting but states she he has felt hot and chills throughout the day today. Blood work is unremarkable. EKGs shows no acute ST elevations. Patient was given metoprolol IV as she missed her dose of metoprolol at home for her AFib rate control. Rate is now controlled and vital signs are stable. Chest x- ray shows no infiltrates however based on patient's clinical presentation, subjective fever, productive cough more than likely this is consistent of pneumonia. We will discharge patient with antibiotics, and cough syrup. Discussed findings with patient and family. Educated on signs and symptoms of when to return back to the emergency room and follow up with PCP. Both verbalized understanding, answered all questions. Differential diagnosis: NH, flu, pneumonia, viral syndrome, bronchitis Rationale: Tests considered and ordered secondary to shared decision making include: Previous outside records reviewed: Old ER visits. Risk of complication and/or morbidity or mortality of patient management: None Medications-Per medication reconciliation Need for hospitalization: Patient does not meet criteria for hospitalization. Need for emergency major/minor surgery: No There are no social concerns with this patient. Prescription drug management Prescriptions will include symptomatic care Patient's prior external medical records from other ER visits were reviewed by me as indicated. Prior testing and results from previous visits were reviewed. Prior tests were taken into account with medical decision making and resource utilization, independent historian/historians were used to obtain complete medic al history. I independently interpreted the test that were performed, results were reviewed by me and considered findings on radiology if ordered. Medical management and examination interpretation discussions were had by me with other qualified healthcare professionals as indicated for the patient's care. DX & DISP Disposition: Discharge Departure Impression: Primary Impression: CAP (community acquired pneumonia) Condition: Stable Scripts Azithromycin (Azithromycin) 250 Mg Tablet 1 TAB PO AD for 5 Days, #6 TAB 0 Refills 2 the first day followed by 1 for days 2-5 Prov: JOSE KISER DO 11/07/24 Promethazine HCl/Codeine (Promethazine-Codeine Syrup) 6.25 Mg-10 Mg/5 Ml Syrup 5 ML PO Q4HPRN PRN for cough, #120 ML 0 Refills Prov: JOSE KISER DO 11/07/24 Additional Instructions: Take the antibiotics and cough syrup as prescribed. You can take Tylenol or Motrin [id number] for body aches, fever control. Follow up with PCP in 1- 2 days or return to the ER if any symptoms worsen. Referrals: RADHA JON M.D. (PCP) Time of Disposition: 21:25 I have reviewed the case, and I agree with, Diagnosis and Plan I performed a substantive portion of the visit. I have reviewed and personally made and approve the management plan that is documented in the notes by myself with KADE/resident. I acknowledged full responsibility for the patient's management plan. MELE CASTILLO NP Nov 07, 2024 20:10 JOSE KISER DO Nov 07, 2024 21:12
[2024-11-07 20:17] LABS: BASOPHILS # (AUTO) 0.07 K/uL (0.00-0.20); BASOPHILS % (AUTO) 0.7 % (0.0-5.0); EOSINOPHILS # (AUTO) 0.28 K/uL (0.00-0.70); EOSINOPHILS % (AUTO) 2.7 % (0.0-8.0); HEMATOCRIT 41.5 % (36-48); IMMATURE GRANULOCYTE ABSOLUTE 0.03 K/uL (0-1); LYMPHOCYTES # (AUTO) 1.3 K/uL (1.0-4.8); MEAN CORPUSCULAR HEMOGLOBIN 29.8 pg (27.0-33.0); MEAN CORPUSCULAR HGB CONC 32.5 g/dL (32.0-36.0); MEAN CORPUSCULAR VOLUME 91.6 fL (79-99); MONOCYTES # (AUTO) 0.8 K/uL (0.1-1.0); NEUTROPHILS % (AUTO) 76.3 % (40.0-77.0); PLATELET COUNT (AUTO) 193 K/uL (130-400); RED BLOOD CELL COUNT(AUTO) 4.53 MIL/uL (4.00-5.50); RED CELL DISTRIBUTION WIDTH 12.8 % (11.0-15.5); WHITE BLOOD COUNT (AUTO) 10.4 K/uL (4.8-10.8)
[2024-11-07] MEDS: 0.9%NACL 1000ML 1,000 ML IV STA (20:18)
[2024-11-07] MEDS: acetaMINOPHEN 325 MG TAB PO STA (20:18)
[2024-11-07] MEDS: metoPROLOL tartRATE 1 MG/ML 5ML VIAL IV STA (20:18)
[2024-11-07 20:30] LABS: CREATININE 0.6 mg/dL (0.5-1.0); POTASSIUM 3.8 mmol/L (3.5-5.1)
[2024-11-07 20:37] LABS: SARS-CoV-2, RNA, NAAT NEGATIVE SARS CoV-2 (NEGATIVE)
[2024-11-07 20:53] LABS: INFLUENZA TYPE A Negative For Type A (NEGATIVE); INFLUENZA TYPE B Negative For Type B (NEGATIVE)
--- NOTE | 2024-11-07 21:05 | HMCIMG ---
CHEST 1VW CLINICAL HISTORY: cough COMPARISON: 02/28/2021 TECHNIQUE: Single view of the chest was obtained. FINDINGS: Lungs are clear. The cardiac size and mediastinum are unremarkable. The bony structures are within normal limits. IMPRESSION: No acute cardiopulmonary process identified.
[2024-11-07] MEDS ORDERED: CODE473S6 PO (21:11)
[2024-11-07] MEDS ORDERED: AZIT250T9 PO (21:11)
[2024-11-07 21:27] VITALS: BP 151/74; PULSE 90; RESP 20; TEMP 98.4; O2SAT 96
--- NOTE | 2024-11-08 06:00 | EKG ---
[facility] Test Date: 2024-11-07 Test Time: 20:03:45 Pat Name: CHANELL NAVARRO Department: [facility] Room: Gender: F Light Out Examiner: [id number] : 1950 Requested By: MELE CASTILLO Order Number: [id number] Reading MD: Parag Allison Measurements Intervals Tyler Rate: 135 P: 0 OR: 0 QRS: 33 QRSD: 66 T: -31 QT: 271 QTc: 406 Interpretive Statements Atrial fibrillation Compared to ECG 03/01/2021 06:02:43 Myocardial infarct finding no longer present Electronically Signed On 11-08-2024 17:08:32 DRIVER/REFUSE COLLECTOR by Parag Allison Please click the below link to view image of tracing.
== END 2024-11-07 21:38 | disposition home or self-care (01) ==
LOC: EDH 19:24
DX: J18.9 Pneumonia, unspecified organism (principal); E78.00 Pure hypercholesterolemia, unspecified; I10 Essential (primary) hypertension; Z79.01 Long term (current) use of anticoagulants; Z79.51 Long term (current) use of inhaled steroids; Z79.899 Other long term (current) drug therapy; Z88.0 Allergy status to penicillin; Z90.49 Acquired absence of other specified parts of digestive tract; Z20.822 Contact with and (suspected) exposure to COVID-19
CPT/HCPCS: 99285; 96374; 71045; 87635; 96361; 84484; 80048; 85025; 87880; 87804 ×2; 36415; 93005; J3490; J7030; 99284

== ENCOUNTER → 2024-12-27 | Outpatient (CLI) | payer OTHER ==
[~2024-12-27] MED LIST changes: +AZIT250T9 PO; +CODE473S6 PO
[2024-12-27 12:19] LABS: BASOPHILS % (AUTO) 1.7 % (0.0-5.0); EOSINOPHILS # (AUTO) 0.43 K/uL (0.00-0.70); EOSINOPHILS % (AUTO) 7.5 % (0.0-8.0); HEMATOCRIT 43.4 % (36-48); IMMATURE GRANULOCYTE ABSOLUTE 0.02 K/uL (0-1); LYMPHOCYTES # (AUTO) 1.6 K/uL (1.0-4.8); LYMPHOCYTES % (AUTO) 27.7 % (21.0-51.0); MEAN CORPUSCULAR HEMOGLOBIN 29.7 pg (27.0-33.0); MEAN CORPUSCULAR HGB CONC 31.8 g/dL (32.0-36.0); MEAN CORPUSCULAR VOLUME 93.3 fL (79-99); MONOCYTES # (AUTO) 0.5 K/uL (0.1-1.0); MONOCYTES % (AUTO) 8.5 % (3.0-13.0); NEUTROPHILS # (AUTO) 3.1 K/uL (1.8-7.7); NEUTROPHILS % (AUTO) 54.3 % (40.0-77.0); PLATELET COUNT (AUTO) 220 K/uL (130-400); RED BLOOD CELL COUNT(AUTO) 4.65 MIL/uL (4.00-5.50); RED CELL DISTRIBUTION WIDTH 12.6 % (11.0-15.5); WHITE BLOOD COUNT (AUTO) 5.8 K/uL (4.8-10.8)
[2024-12-27 12:43] LABS: ALBUMIN 3.6 g/dL (3.5-5.0); BILIRUBIN,TOTAL 0.6 mg/dL (0.2-1.0); CREATININE 0.6 mg/dL (0.5-1.0); MAGNESIUM 1.8 mg/dL (1.80-2.40); POTASSIUM 4.6 mmol/L (3.5-5.1); TOTAL PROTEIN, SERUM 7.1 g/dL (6.0-8.3)
== END | disposition home or self-care (01) ==
LOC: LAB 11:06
PROVIDERS: ATTEND Internal Medicine Cardiovascular Disease
DX: I10 Essential (primary) hypertension (principal); E78.00 Pure hypercholesterolemia, unspecified; I48.19 Other persistent atrial fibrillation
CPT/HCPCS: 36415; 80053; 80061; 83735; 85025

== ENCOUNTER → 2025-03-17 | Outpatient (CLI) | payer OTHER ==
--- NOTE | 2025-03-17 16:39 | HMCIMG ---
CT HEAD/BRAIN W/O CONTRAST HISTORY: Recent fall COMPARISON: None TECHNIQUE: Multiple sequential axial images of the head were obtained from the base of the skull through vertex. Patient was not given contrast through intravenous route. FINDINGS: The ventricles and extraventricular CSF spaces are dilated consistent with cerebral atrophy. Nonspecific white matter changes seen. There is no midline shift, mass effect or herniation. No acute intracranial bleed is seen. Visualized portion of the paranasal sinuses are grossly within normal limits. IMPRESSION: 1. No acute intracranial bleed is seen. 2. Atrophy with white matter changes. CT was performed with one or more following dose reduction techniques: automated exposure control, adjustment of the mA and kv according to patient's size, or use of a iterative reconstruction technique.
== END | disposition home or self-care (01) ==
LOC: RAH 14:00
PROVIDERS: ATTEND Family Medicine
DX: S09.90XA Unspecified injury of head, initial encounter (principal); G93.89 Other specified disorders of brain; G31.9 Degenerative disease of nervous system, unspecified; R90.82 White matter disease, unspecified; X58.XXXA Exposure to other specified factors, initial encounter; Y93.89 Activity, other specified; Y92.89 Other specified places as the place of occurrence of the external cause; Y99.8 Other external cause status; Z91.81 History of falling
CPT/HCPCS: 70450